=== PATIENT | female | born 1955 | race Caucasian/White ===

== ENCOUNTER 2022-04-13 05:07 | Observation (INO) ==
--- NOTE | 2022-03-19 16:10 | PAT Medication Instructions ---
Medication Instructions Date of Service March 19, 2022 Home Medications acetaminophen 500 mg tablet 1,000 mg PO Q6H PRN Pain ascorbic acid (vitamin C) 1,000 mg tablet (Vitamin C) 1 g PO Q2D cholecalciferol (vitamin D3) 25 mcg (1,000 unit) capsule (Vitamin D3) 25 mcg PO QPM cyanocobalamin (vitamin B-12) 1,000 mcg capsule 1,000 mcg PO QPM famotidine 20 mg tablet (Pepcid) 20 mg PO QAM multivitamin 1 tab PO QPM rosuvastatin 20 mg tablet 20 mg PO QAM DO NOT take the morning of surgery ascorbic acid (vitamin C) 1,000 mg tablet (Vitamin C) 1 g PO Q2D Take morning of surgery With a small sip of water, OTHERWISE NOTHING TO EAT OR DRINK AFTER MIDNIGHT: acetaminophen 500 mg tablet 1,000 mg PO Q6H PRN Pain (if needed) famotidine 20 mg tablet (Pepcid) 20 mg PO QAM rosuvastatin 20 mg tablet 20 mg PO QAM Take evening before surgery acetaminophen 500 mg tablet 1,000 mg PO Q6H PRN Pain (if needed) cholecalciferol (vitamin D3) 25 mcg (1,000 unit) capsule (Vitamin D3) 25 mcg PO QPM cyanocobalamin (vitamin B-12) 1,000 mcg capsule 1,000 mcg PO QPM multivitamin 1 tab PO QPM Other Notes If you have any questions please call us at [phone] or [phone] or [phone] or [phone]
--- NOTE | 2022-03-22 10:36 | Anesthesiology Consultation ---
Date of Service March 22, 2022 Assessment & Plan (1) Encounter for pre-operative examination: - Outpatient joint pathway: Per surgeon and patient, plan for outpatient joint program. Upon review of chart- patient is an acceptable candidate for Same Day Joint Program from anesthesia perspective pending perioperative course. Pending patient is motivated, has good support and surgeon's office completes Same Day Joint Program preop requirements- patient may proceed with outpatient TKA. Chart Review Chart Review: Acceptable Risk for Surgery and Patient seen in Pre Admission Testing Teaching & Discussion Pre-Anesthesia Teaching/Discussion Notes: Instructed NPO after midnight before surgery, except medications with 15 cc of water. Medication instructions provided according to the PAT guidelines. History Surgery Operation Date: 04/13/22 10:30 Proposed Procedures p Right Total Knee Arthroplasty - Blake Graham MD Height/Weight Height: 5 ft 5 in Weight: 83.3 kg Allergies Allergy/AdvReac Type Severity Reaction Status Date / Time No Known Allergies Allergy Verified 03/14/22 14:32 Medications Home Medications Medication Instructions Recorded Confirmed Last Taken acetaminophen 500 mg tablet 1,000 mg PO Q6H PRN Pain 03/14/22 03/14/22 Unknown ascorbic acid (vitamin C) 1,000 mg 1 g PO Q2D 03/14/22 03/14/22 Unknown tablet (Vitamin C) cholecalciferol (vitamin D3) 25 25 mcg PO QPM 03/14/22 03/14/22 Unknown mcg (1,000 unit) capsule (Vitamin D3) cyanocobalamin (vitamin B-12) 1,000 mcg PO QPM 03/14/22 03/14/22 Unknown 1,000 mcg capsule famotidine 20 mg tablet (Pepcid) 20 mg PO QAM 03/14/22 03/14/22 Unknown multivitamin 1 tab PO QPM 03/14/22 03/14/22 Unknown rosuvastatin 20 mg tablet 20 mg PO QAM 03/14/22 03/14/22 Unknown Wheeled Walker #1 ea 03/22/22 03/22/22 Unknown Past Medical History Medical History (Updated 03/22/22 @ 10:33 by Brenna Murillo PA-C) GERD (gastroesophageal reflux disease) controlled, stable per pt with diet control History of COVID-19 DX'D 03/2021 [facility] [place]-PNEUMONIA, NAUSEA,FEVER,FATIGUE-REOVERED AT HOME-RESOLVED Hyperlipidemia Patient denies h/o stroke, seizures, heart attack, heart failure, DM, HTN, blood clots or blood transfusions. Exercise / Class Metabolic Activity II 4-5 Yardwork/Stairs/Walk up hill (denies CP or SOB walking up hills, less than 8 steps in home) Past Family History Family History Mother Family history of diabetes mellitus Past Surgical History Surgical History H/O arthroscopy of left knee H/O bladder repair surgery History of cholecystectomy History of esophagogastroduodenoscopy (EGD) X 2 Past Anesthesia History No Hx of Anesthesia Complications and No Family Hx of Anesthesia Complications History of PONV No Hx of PONV and No Hx of Motion Sickness Social History Smoking Status: Never smoker Do You Dip or Chew Tobacco: No Hx Alcohol Use: Yes Alcohol type: beer alcohol intake frequency: holidays/special occasions only Hx Substance Use: No Review of Systems Patient denies chest pain, shortness of breath, dyspnea on exertion, snoring, wi tnessed apneas, fever, chills, cough, wheezing, or palpitations. Physical Exam Vital Signs Vitals BP 109/71 P 61 TEMP 98.1 SP02 98% on RA RESP 18 Physical Full cervical extension range of motion without pain TMD 3.5 finger breadths Mallampati Score 2 Dentition: intact, several missing, chipped and loose teeth; upper bilat side implants; denies caps/crowns Lungs: normal respiratory effort. Clear throughout to auscultation, no adventitious breath sounds Cardiac: regular rate and rhythm, no murmurs noted Carotid arteries: negative bruit bilat Lab Results Anesthesia Preop Results Results Anesthesia Widget: WBC 5.19 K/ul (4.8-10.8) 03/22/22 Hgb 12.7 g/dl (12.0-16.0) 03/22/22 Hct 38.4 % (34.1-44.9) 03/22/22 Plt 211 K/uL (130-400) 03/22/22 Na 140 mmol/L (136-145) 03/22/22 K 4.6 mmol/L (3.5-5.1) 03/22/22 Cl 106 mmol/L (98-107) 03/22/22 CO2 28 mmol/L (21-32) 03/22/22 BUN 18 mg/dl (6-23) 03/22/22 Creat 0.92 mg/dl (0.6-1.2) 03/22/22 Glucose Level 92 mg/dl (70-99(Fasting)) 03/22/22 PT 10.6 Seconds (9.0-12.0) 03/22/22 PTT 25.7 Seconds (21.0-31.0) 03/22/22 INR 1.0 (0.9-1.1) 03/22/22 Blood Type A Positive 03/22/22 Antibody Screen NEGATIVE 03/22/22 Testing Laboratory Results A1c 6.1% 02/27/22 Electrocardiogram Date: 03/22/22 Sinus bradycardia, rate 58 bpm Chest X-Ray Date: 03/22/22 The cardiomediastinal and hilar silhouettes are within normal limits. No pneumothorax, pleural effusion, airspace consolidation or overt pulmonary edema. Spondylitic spurring of the spine. Healed chronic bilateral rib fractures. Cholecystectomy. IMPRESSION: No acute process. COVID-19 Risk Screen Screening Information COVID-19 Screen Date: 03/22/22 Exposure 21 Days Family/Household +COVID Last 21 Days: No Exposure 10 Days Any COVID Exposure Last 10 Days: No Symptoms Last 10 Days Experienced COVID Sx Last 10 Days: No + COVID 0-90 Days COVID + in Last 0-90 Days: No
[2022-04-13] MEDS ORDERED: LR 500ML BOLUS, THEN 15ML/HR IV SCH (06:00)
[2022-04-13] MEDS ORDERED: Scopolamine 1 MG TDSY TD SCH (06:00)
[2022-04-13] MEDS ORDERED: FAMOTIDINE 20 MG TAB PO SCH (06:00)
[2022-04-13] MEDS ORDERED: LR 60ML/HR IV SCH (06:00)
[2022-04-13] MEDS ORDERED: ACETAMINOPHEN 500 MG TAB PO SCH (06:00)
[2022-04-13] MEDS ORDERED: CeleBREX 200 MG CAP PO SCH (06:00)
[2022-04-13] MEDS ORDERED: ceFAZolin 2000MG 2,000 MG/15 ML SYR IV SCH (06:00)
[2022-04-13] MEDS ORDERED: METOCLOPRAMIDE HCL 10 MG TABLET PO SCH (06:00)
[2022-04-13] MEDS ORDERED: TRANEXAMIC ACID 1,000 MG **IV Intra-op IV SCH (06:00)
[2022-04-13] MEDS ORDERED: BUPIVACAINE LIPOSOME/PF 266 MG, BUPIVACAINE/EPINEPHRINE 50 ML, SODIUM CHLORIDE 0.9% 30 ... INFIL SCH (06:00)
[2022-04-13] MEDS ORDERED: EPINEPHrine INJ 1 MG/ML AMP ONE (06:28)
[2022-04-13] MEDS ORDERED: ROPIVACAINE 0.5% 5 MG/ML 30 ML VIAL ONE (06:28)
[2022-04-13] MEDS ORDERED: MEPIVACAINE HCL 1.5% 30 ML VIAL ONE (06:28)
[2022-04-13] MEDS ORDERED: MIDAZOLAM HCL 1 MG/ML 2ML VIAL ONE (06:43)
--- NOTE | 2022-04-13 06:53 | History & Physical Bridge Note ---
Date of Service April 13, 2022 History & Physical Bridge Note I have examined the patient, reviewed the History & Physical and in the interval since the performance of the History & Physical I have noted the following changes of clinical significance: no changes noted
[2022-04-13] MEDS ORDERED: SODIUM CHLORIDE 0.9% PF 50 ML VIAL ONE (06:58)
[2022-04-13] MEDS ORDERED: BUPIVACAINE/EPINEPHRINE 0.25% 1:200,000 30 ML VIAL ONE (06:58)
[2022-04-13] MEDS ORDERED: BUPIVACAINE LIPOSOME 1.3% 266 MG/20 ML VIAL ONE (06:58)
[2022-04-13] MEDS ORDERED: PROPOFOL IV EMULSION 10 MG/ML 20 ML VIAL IV ONE (07:24)
[2022-04-13] MEDS ORDERED: KETOROLAC 30 MG/ML VIAL ONE (07:24)
[2022-04-13] MEDS ORDERED: LIDOCAINE 2% MPF LOCAL 5 ML VIAL INFIL ONE (07:24)
[2022-04-13] MEDS ORDERED: KETAMINE 50 MG/5 ML SYRINGE ONE (07:28)
[2022-04-13] MEDS ORDERED: GLYCOPYRROLATE 0.2 MG/ML VIAL ONE (07:28)
[2022-04-13] MEDS ORDERED: ONDANSETRON INJ 2 MG/ML 2 ML VIAL ONE (07:46)
[2022-04-13] MEDS ORDERED: ATROPINE SULFATE 0.1 MG/ML 10ML SYR IV PRN (08:22)
[2022-04-13] MEDS ORDERED: ePHEDrine sulfate 50 MG/ML AMP IV PRN (08:22)
--- NOTE | 2022-04-13 08:58 | Operative Report ---
PG Post Operative Report Pre & Post Diagnosis Operation Date: 04/13/22 07:00 Pre-Op Diagnosis: Right Knee Osteoarthritis Post-Op Diagnosis: Right Knee Osteoarthritis I identified the patient and participated in the time-out.: Yes Procedure Operation Date: 04/13/22 07:00 Actual Procedures p Right Total Knee Arthroplasty(Right) - Blake Graham MD Surgeon Blake Graham MD Construction Scheduler Jeovanny Us PA-C Estimated Blood Loss 50 Findings Consistent with Post-Op Diagnosis Operative findings real advanced right knee DJD. She had extensive grade 4 [id number] disease of the medial and patellofemoral compartments. She had a varus deformity to her knee with a flexion contracture. She had multiple loose bodies. Moderate-sized joint effusion. Specimens Right knee sent for pathology Drains None Anesthesia Type Spinal MAC Complications none Disposition Accompanied Patient To Recovery: No Indications Patient is a 66-year-old female has had a several year history of gradual progressive increased right knee pain discomfort and stiffness. She failed conservative measures. She elected proceed with total knee arthroplasty. Description of Procedure Operative implants consisted of: 1. Biomet Vanguard size 62.5 right posterior stabilized femoral component. 2. Biomet size 71 tibial tray. 3. 10 mm posterior stabilized polyethylene insert. 4. 31 x 8 all Paller patella. The patient was taken the operating, identified, and placed on the operating table supine position protectors were properly padded. IV antibiotics tried by anesthesia team. A spinal anesthetic and abductor canal block had been provided in the holding area. A right thigh tourniquet was then placed. The right lower extremities then prepped and draped in usual sterile fashion. The right leg was elevated exsanguinated with use of an Esmarch interspaced at 300 mmHg. An anterior approach of the right knee was then performed to longitudinal incision centered over the patella. Sharp dissection was carried through subcutaneous this down the extensor mechanism. A medial parapatellar arthrotomy incision was made. Some subperiosteal dissection was carried out medially. The fat pad was resected from Neath patella tendon. Lateral patellofemoral ligament was released. Patella was subluxated laterally and the knee was flexed. Multiple loose bodies were removed from the knee. The osteophytes taken off distal femur. The ACL and PCL were then released from distal femur the tibia subluxated anteriorly. External tibial alignment jig was then placed in the interface the tibia and adjusted 14 mm medially. Proximal tibial cut was made remove about 2 mm of bone from the medial side. The tibia was then sized to a size 71. We did remove some osteophytes medially and posterior medially. Attention then drawn the femur. The distal femur stem with a sharp drill. Intramedullary canal was suction. A right 5 degree valgus cutting guide was placed. Distal femoral cutting block was pinned in place. Distal femoral cut was made to take an additional 3 mm bone off distal femur. The femur was then sized to a size 62.5. We did downsize about a half a size. The AP cutting block was pinned parallel to the epicondylar axis which was 4 degrees of external rotation. The anterior cut, anterior chamfer, posterior cut, posterior chamfer cuts were made. The box cutting guide was placed in the just slight lateral box cut was made. The knee was flexed. The remnants of the medial and lateral menisci were excised. The osteophyte taken off the posterior aspect of femur. A trial femoral component was placed. The tibial tray was pinned in maximum external rotation and the drill and stem punch used to create defect in proximal tibia for the tibial tray. Knee was then trialed and the 10 mm insert fit most appropriately. Attention drawn to the patella. The patella was cleaned of all soft tissue. Patella thickness measured by 18 mm in thickness and was cut down to 13. Was sized to a size 31 patella. The lug holes were drilled for the 31 patella. Lateral osteophytes removed. Patella button was placed. Knee was taken through range of motion patella tracked nicely with no thumbs test. Attention drawn to place the permanent components. All trial components were removed. Bone plug was placed in the distal femur limit blood loss. Double batch Palacos G cement was mixed. Biomet Vanguard size 62.5 right posterior stabilized femoral component, size 71 tibial tray, 10 mm posterior stabilized polyethylene insert, and a 31 x 8 all Paller patella then cemented in place. Knee was brought out into full extension until cement hardened. Final cement check was then performed. Pericapsular tissues were injected with total 100 cc of combination of 20 cc of Exparel, 30 cc normal saline, 50 cc of quarter percent Marcaine with epinephrine. Patient did receive 1 g tranexamic acid. The tourniquet was then let down for final turn time 56 minutes. Hemostasis assured use electrocautery. Extensor mechanism then closed with combination 1 PDS suture #1 Vicryl suture in [id number] fashion. Ext ensor mechanism checked found to be intact with subcutaneous tissue then closed with 2 Dexon suture in a buried interrupted fashion skin was closed skin ramon. Legs then cleaned and dried a sterile dressing was Xeroform, 4 x 4's, sterile cast padding, Armani bandage were applied. Patient then transferred to the recovery room in stable condition. Patient tolerated procedure well and there were no complications. Jeovanny Us, my physician secretary administrative assistant, was present for the entire procedure. His assistance was essential and required for appropriate patient positioning, prepping and draping, surgical exposure, performing the technical details of the operation, placement the implants, closure of the wound, and placement of the sterile bandage. I attest to the content of the Intraoperative Record and any orders documented therein. Any exceptions are noted below.
--- NOTE | 2022-04-13 09:08 | XRay Report ---
RIGHT KNEE 2 VIEWS History: Right total knee arthroplasty. Degenerative arthritis. Postop. FINDINGS: The patient is status post a right total knee arthroplasty. The hardware is intact. No frac ture or dislocation. Skin ramon are in place. IMPRESSION: Right total knee arthroplasty. No evidence for hardware complication. ACT 112: Negative or not required by law. Electronically signed by: Jamaal Green M.D. 04/13/2022 9:07 AM
--- NOTE | 2022-04-13 09:25 | Anesthesiology Progress Note ---
Date of Service April 13, 2022 Anesthesia Post Procedure Vital Signs Vital Signs: Temp Pulse Pulse Resp BP Pulse Ox O2 Del Method 04/13/22 09:15 68 19 115/75 97 Room Air 04/13/22 09:05 80 16 120/66 98 Room Air 04/13/22 08:55 36.5 C 79 14 104/63 100 Oxymask 04/13/22 05:37 36.7 C 64 18 129/78 97 Room Air O2 Flow Rate 04/13/22 09:15 04/13/22 09:05 04/13/22 08:55 4 04/13/22 05:37 Pain Intensity Right Knee: Pain Intensity: 8 Transfer of Care Handoff Completed per policy Notes Mental Status: alert / awake / arousable Patient Amnestic to Procedure: Yes Nausea / Vomiting: adequately controlled Pain: adequately controlled Airway Patency, RR, SpO2: stable & adequate BP & HR: stable & adequate Hydration State: stable & adequate Neuraxial Anesthesia: was administered and sensory block is resolving Anesthetic Complications: no major complications apparent
[2022-04-13] MEDS: oxyCODONE/ACETAMINOPHEN 5mg/325mg TAB PO PRN ×2 (10:06→17:09)
[2022-04-13] MEDS ORDERED: ceFAZolin 2000MG 2,000 MG/15 ML SYR IV ONE (15:00)
[2022-04-13] MEDS ORDERED: HYDROmorphone INJ 0.5 MG/0.5 ML SYR IV PRN (19:09)
[2022-04-13] MEDS ORDERED: NALOXONE HCL 0.4 MG/1 ML VIAL/CARP IV PRN (19:09)
[2022-04-13] MEDS ORDERED: ONDANSETRON INJ 2 MG/ML 2 ML VIAL IV PRN (19:09)
[2022-04-13] MEDS ORDERED: ALUMINUM/MAGNESIUM SUSP 30 ML UDC PO PRN (19:09)
[2022-04-13] MEDS ORDERED: bisacodyL 10 MG SUPP PR PRN (19:09)
[2022-04-13] MEDS ORDERED: MAGNESIUM HYDROXIDE SUSP 30 ML UDC PO PRN (19:09)
[2022-04-13] MEDS ORDERED: METOCLOPRAMIDE HCL INJ 5 MG/ML 2 ML VIAL IV PRN (19:09)
[2022-04-13] MEDS ORDERED: NON-FORMULARY MEDICATION (Ascorbic Acid (Vitamin C) [Vitamin C] 1,000 mg Tablet) PO SCH (19:09)
[2022-04-13] MEDS: KETOROLAC TROMETHAMINE 15 MG/ML VIAL IV SCH (20:40)
[2022-04-13] MEDS: DOCUSATE SODIUM 100 MG CAP PO SCH (20:41)
[2022-04-13] MEDS: ASPIRIN 81 MG ECTAB PO SCH (20:41)
[2022-04-13] MEDS ORDERED: NON-FORMULARY MEDICATION (Multivitamin Tablet) PO SCH (21:00)
[2022-04-13] MEDS ORDERED: CHOLECALCIFEROL 1,000 UNITS 25 MCG TAB PO SCH (21:00)
[2022-04-13] MEDS ORDERED: SENNA 8.6 MG TAB PO SCH (21:00)
[2022-04-13] MEDS ORDERED: CYANOCOBALAMIN (B-12) 500 MCG TABLET PO SCH (21:00)
[2022-04-13] MEDS: Scopolamine CHECK PATCH PLACEMENT SCH (21:06)
[2022-04-13] MEDS: SODIUM CHLORIDE 0.9% 1000ML 1,000 ML IV SCH (23:00)
[2022-04-13] MEDS ORDERED: TRANEXAMIC ACID / 0.7% NACL 1,000 MG/100 ML BAG IV SCH (23:45)
[2022-04-14] MEDS: ceFAZolin 2000MG 2,000 MG/15 ML SYR IV SCH ×2 (00:02→08:22)
[2022-04-14] MEDS: Scopolamine CHECK PATCH PLACEMENT SCH ×2 (01:12→08:09)
[2022-04-14] MEDS: KETOROLAC TROMETHAMINE 15 MG/ML VIAL IV SCH ×3 (01:47→14:21)
[2022-04-14] MEDS: ACETAMINOPHEN 500 MG TAB PO SCH ×3 (01:49→14:21)
[2022-04-14] MEDS: oxyCODONE HCL IR 5 MG TAB (IMMEDIATE RELEASE) PO PRN ×2 (03:17→12:06)
[2022-04-14 06:55] LABS: Hematocrit (blood only) 29.8 % (34.1-44.9); Hemoglobin 10.1 g/dl (12.0-16.0); Mean Corpuscular Hemoglobin 29.1 pg (25.0-34.0); Mean Corpuscular Hgb Conc 33.9 g/dL (32.0-36.0); Mean Corpuscular Volume 85.9 fL (80.0-100.0); Mean Platelet Volume 10.8 fL (9.4-12.3); Platelet Count 187 K/uL (130-400); RDW Coefficient of Variation 12.5 % (11.5-14.5); RDW Standard Deviation 38.6 fL (36.4-46.3); Red Blood Count 3.47 M/uL (3.93-5.22); White Blood Count 8.53 K/ul (4.8-10.8)
[2022-04-14 07:26] LABS: BUN Creatinine Ratio 17.7 (10-20); Calcium 8.5 mg/dl (8.5-10.1); Creatinine Clr Calc Pharmacy 61.8 ml/min; Est GFR (African American) 71.4 ml/min; Est GFR (Non-African American) 61.6 ml/min; Potassium 4.3 mmol/L (3.5-5.1)
[2022-04-14] MEDS: SODIUM CHLORIDE 0.9% 1000ML 1,000 ML IV SCH (07:34)
[2022-04-14] MEDS ORDERED: ASCORBIC ACID 500 MG TAB PO SCH (08:00)
[2022-04-14] MEDS ORDERED: dexAMETHasone 10 MG in SYRINGE 0 ML IV SCH (08:00)
[2022-04-14] MEDS: DOCUSATE SODIUM 100 MG CAP PO SCH (08:08)
[2022-04-14] MEDS: ASPIRIN 81 MG ECTAB PO SCH (08:08)
[2022-04-14] MEDS ORDERED: ROSUVASTATIN CALCIUM 20 MG TAB PO SCH (09:00)
[2022-04-14] MEDS ORDERED: MULTIVITAMIN TAB PO SCH (09:00)
[2022-04-14] MEDS ORDERED: DOCUSATE SODIUM/SENNA 50/8.6MG TAB PO SCH (09:00)
[2022-04-14] MEDS ORDERED: FAMOTIDINE 20 MG TAB PO SCH (09:00)
--- NOTE | 2022-04-14 09:02 | Progress Notes ---
SUBJECTIVE: A 66-year-old white female postoperative day 1 from a right knee replacement. She is do ing okay. Pain has been controlled. Her quad just has been weak. She is planning on doing this as an outpatient, but she failed therapy. No new complaints. No chest pain or shortness of breath. No t feeling dizzy or lightheaded. Her knee pain is actually controlled. OBJECTIVE: VITAL SIGNS: Temperature 36.9. Vital signs are stable. GENERAL: Shows a pleasant middle-aged female. She is sitting on bed, looks pretty comfortable this morning. LUNGS: Clear to auscultation. HEART: Regular rate and rhythm. ABDOMEN: Soft, nontender, nondistended. EXTREMITIES: Grossly neurovascularly intact except as follows. Examination of the right knee and leg reveals the leg to be well aligned. Dressing is clean, dry and intact. She can dorsiflex and plantarflex her foot appropriately. She cannot do a straight leg perez se yet. No pain with hip motion. LABORATORY DATA: Hemoglobin 10.1. Hematocrit 29.8. Electrolytes are stable. ASSESSMENT: A 66-year-old white female postoperative day 1 from a right knee replacement, doing okay . Her quad function has been slowly returning which is not unusual. Sometimes it takes 2 weeks befo re you can do a straight leg raise. She is neurologically intact. PLAN: 1. DVT prophylaxis includes thigh-high TEDs, SCDs, and aspirin twice a day. 2. PT/OT, weightbear as tolerated. Right total knee protocol. 3. Pain control, doing okay with current pain regimen. 4. Disposition: Plan to discharge to home with some home health if she does okay in therapy today. Job ID: [id number]
--- NOTE | 2022-04-20 07:48 | Discharge Summary ---
Date of Service April 20, 2022 Discharge Data Procedures Performed Operation Date: 04/13/22 07:00 Actual Procedures p Right Total Knee Arthroplasty(Right) - Blake Graham MD Hospital Course (1) Status post total right knee replacement: This is a 66 year old patient admitted on 04/13/22 and underwent total knee arthroplasty. She tolerated the procedure well and there were no complications. Transferred to the PACU post op and later to the orthopedic floor for further care. She was planning on doing this as an outpatient but failed PT. She was given ancef for antibiotic prophylaxis. She was also given JAMISON stockings, SCDs, and aspirin for DVT prophylaxis. Hemoglobin, hematocrit, and vital signs were monitored during her hospital stay and remained stable. Did not require any blood transfusions. There were no complications during her hospital stay. By post op day #1 the patient was tolerating a regular diet, pain was reasonably controlled with oral pain medicine, and she was participating in physical therapy. On post op day #1 the patient was discharged home and set up with home health care. She was given printed discharge instructions including prescriptions for extra strength tylenol, aspirin, senokot, zofran, and oxycodone. Continue physical therapy, weight bearing as tolerated. Continue JAMISON stockings. Follow up approximately 2 weeks post op or sooner if there are prob lems or concerns. Coding Level of Care Code None Diagnoses Status post total right knee replacement Z96.651
== END 2022-04-14 15:46 | disposition home health service (06) ==
LOC: 3E 05:07 → ASU 05:07

== ENCOUNTER 2023-09-26 09:14 | Observation (INO) ==
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
[~2023-09-26 09:14] MED LIST: ACETAMINOPHEN 1000 MG/100 ML IV IV ONE
[2023-09-26] MEDS ORDERED: ONDANSETRON INJ 2 MG/ML 2 ML VIAL ONE (10:10)
[2023-09-26] MEDS ORDERED: LIDOCAINE 2% 2 ML VIAL/AMP(20MG/ML) INFIL ONE (10:10)
[2023-09-26] MEDS ORDERED: ROCURONIUM BROMIDE 10 MG/ML 5 ML VIAL IV ONE (10:10)
[2023-09-26] MEDS ORDERED: PROPOFOL IV EMULSION 10 MG/ML 20 ML VIAL IV ONE (10:10)
[2023-09-26] MEDS ORDERED: MIDAZOLAM HCL 1 MG/ML 2ML VIAL ONE (10:10)
[2023-09-26] MEDS ORDERED: DEXAMETHASONE SOD INJ 4 MG/ML VIAL ONE (10:10)
[2023-09-26] MEDS ORDERED: fentaNYL citrate PF 100 MCG/2 ML VIAL ONE ×2 (10:11→12:42)
[2023-09-26] MEDS: LACTATED RINGER'S 1,000 ML IV SCH ×2 (10:20→17:35)
[2023-09-26] MEDS ORDERED: ONDANSETRON INJ 2 MG/ML 2 ML VIAL IV PRN ×2 (10:41→16:51)
[2023-09-26] MEDS ORDERED: ePHEDrine sulfate 50 MG/ML AMP IV PRN (10:41)
[2023-09-26] MEDS ORDERED: ATROPINE SULFATE 0.1 MG/ML 10ML SYR IV PRN (10:41)
--- NOTE | 2023-09-26 11:19 | History & Physical Bridge Note ---
Date of Service September 26, 2023 History & Physical Bridge Note I have examined the patient, reviewed the History & Physical and in the interval since the performance of the History & Physical I have noted the following changes of clinical significance: no changes noted
[2023-09-26] MEDS: ceFAZolin 2000MG 2,000 MG/15 ML SYR IV SCH ×2 (12:12→21:11)
[2023-09-26] MEDS ORDERED: SUGAMMADEX SODIUM 200 MG/2 ML VIAL IV ONE (15:27)
[2023-09-26] MEDS: BUPIVACAINE 0.5 % 5 MG/1 ML MPF 30ML VIAL ONE (15:29)
[2023-09-26] MEDS: ceFAZolin 330 MG/ML 1 GM VIAL ONE (15:30)
[2023-09-26] MEDS: PREMARIN VAG CRM 14 APPLN/30 GM TUBE ONE (15:31)
--- NOTE | 2023-09-26 15:57 | Operative Report ---
PG Post Operative Report Pre & Post Diagnosis Operation Date: 09/26/23 11:00 Pre-Op Diagnosis: Pelvic floor prolapse, cystocele, dysuria, incontinence Post-Op Diagnosis: Pelvic floor prolapse, cystocele, dysuria, incontinence I identified the patient and participated in the time-out.: Yes Procedure Operation Date: 09/26/23 11:00 Actual Procedures p Robotic Assisted Laparoscopic Sacrocolpopexy, extensive lysis of adhesions. - Carl Dias DO Surgeon Carl Dias, II, DO Board Machine Set Up Operator ALYX Swift Estimated Blood Loss 50 Findings Consistent with Post-Op Diagnosis Severe Pelvic organ prolapse with significant apical displacement and anterior wall prolapse. Grade 3-4 Cystocele prolapse significantly improved after procedure. Significant adhesions to the vaginal cuff and lateral wall. Specimens None Drains 18 Fr jean Anesthesia Type General Complications none Disposition Disposition: Recovery Room Indications Patient with Severe pelvic floor prolapse with significant apical prolapse and cystocele. Risk and benefits were discussed at length. Patient elected to undergo robotic assisted laparoscopic sacrocolpopexy with mesh insertion. Description of Procedure The patient was brought to the operative suite and placed under general endotracheal intubation anesthesia in the supine position. The patient was transferred to the dorsal lithotomy position. At this point, the patient prepped and draped in the usual sterile fashion and a timeout was completed. Preoperati ve antibiotics of Ancef 2 grams had been given. JAMISON's and SCD's were placed on the patient's lower extremities. A catheter was placed using sterile technique. An incision was made above the umbilicus and then a Veress needle was used to obtain access to the abdomen. Proper position was confirmed with the drop test and low initial insufflation pressure. The abdomen was insufflated with CO2 to a pressure of 12-15 mmHg. An 8 mm robotic port was placed in the incision and the robotic camera was inserted. The abdominal cavity was surveyed, demonstrating some sigmoid adhesions. There was no injury to abdominal viscera. The remaining robotic ports were placed under direct visualization, with 2 robotic ports on the left side and 1 robotic port on the right. A 8 mm biology laboratory assistant port was placed on the right side as well. ALYX Swift acted as the bedside biology laboratory assistant for the duration of the case. She assisted with gaining access, providing retraction and suction. Passing in sutures and applying clips as needed. Assisted with displacement/positioning of the vaginal vault. She assisted with closing as well. At this point, I transitioned to the robotic console. The small bowel was mobilized and the multiple adhesions of the sigmoid colon were freed with mainly blunt and sharp cold dissection. I sharply divided the sigmoid adhesions to gain some mobility of the colon. The vaginal cuff had multiple areas of adhesions to the sigmoid colon. Approx 25 additional minutes for extensive lysis of adhesions. An epiploic appendage of the sigmoid colon did have some bleeding/tearing from the lysis. A 3-0 silk suture was used to over- tie the area of tear in the appendage. This controlled bleeding. A seedchange vaginal manipulator was selected. Survey of the pelvis identified an appropriate location to be able to place the mesh and to tunnel the tail to the sacrum. I then turned my attention to the vaginal dissection. With the vagina directed posteriorly, the plane between the bladder and the vagina was established using sharp dissection with judicious cautery. There was significant adhesion of the anterior portion but a largely bloodless plane was achieved both anteriorly and posteriorly. The vagina was then directed anteriorly and the posterior dissection was completed. The posterior dissection was limited due to the numerous areas that had adhesed to the colon. The tissue was found to be thin and largely had been supported due to the adhesions. A 3-0 Vicryl suture was used to bolster the posterior edge of the peritoneum in this section and close the tissue in layers. The area between the aortic bifurcation was identified and the overlying peritoneum was incised. Dissection was carried down to expose the anterior aspect of the sacral promontory. There was good hemostasis. The peritoneum was then incised down to the vaginal tissue to allow coverage of the mesh tail. The mesh was then introduced after being soaked in cefazolin irrigation solution. I secured both the anterior and posterior aspects of the Y portion of the mesh at the vaginal dissection sites using interrupted 2-0 Goretex sutures in an interrupted fashion in four rows of three. The 30 degree up and down scope settings were utilized to secure the mesh. The posterior branch was attached in a similar fashion but this arm was shortened due to the limited prolapse/tissue posteriorly. No injuries or areas of concern. The mesh was well secured. The manipulator was removed and the tissue appeared to hold in good position without strain or issues. The severe prolapse was significantly improved. The manipulator was replaced. The tail of the mesh was then placed to sit at the anterior aspect of the sacral promontory. Tension was placed on the mesh and the prolapse was inspected from the vaginal introitus until there was a satisfactory reduction of the prolapse. The mesh was then secured in place using the 2-0 [place]iah sutures x 3 in an interrupted fashion. I then used 2-0 V-lock sutures to close the peritoneum over the mesh starting from the pelvic and presacral dissection areas. There was excellent hemostasis throughout the case without any major issues or concerns. The entire abdomen was inspected. No issues or concerns. The Mesh was completely covered. No major problems. On vaginal exam, there was drastic improvement of the pelvic floor prolapse. The robot was undocked. The ports were all assessed with the camera and no bleeding or issues. The ports were removed and the air released from the peritoneal cavity. The skin incisions were anesthetized with further local and closed with 4-0 Vicryl Monocryl sutures followed by a layer of Dermabond. Vaginal packing with premarin cream was then placed vaginally. The area was cleaned and glue placed on each incision. The patient was cleaned and bandaged, aroused from anesthesia, and transferred to the pacu in stable condition having tolerated the procedure well with no complications. I was present and participated in all aspects of the procedure. Clare WISDOM was critical in the portions as mentioned above. Will plan to observe postoperatively and monitor. Jean to be removed tomorrow as well as vaginal packing. I attest to the content of the Intraoperative Record and any orders documented therein. Any exceptions are noted below.
[2023-09-26] MEDS: fentaNYL citrate PF 100 MCG/2 ML VIAL IV PRN (15:58)
[2023-09-26 16:22] LABS: Basophils # (auto) 0.02 K/uL (0.00-0.20); Basophils % (auto) 0.2 %; Eosinophils # (auto) 0.03 K/uL (0.00-0.50); Eosinophils % (auto) 0.2 %; Hematocrit (blood only) 35.2 % (37.0-47.0); Hemoglobin 11.5 g/dl (12.0-16.0); Immature Granulocytes # (auto) 0.06 K/uL (0.01-0.20); Immature Granulocytes % (auto) 0.5 %; Lymphocytes # (auto) 1.15 K/uL (1.20-3.40); Lymphocytes % (auto) 9.4 %; Mean Corpuscular Hgb Conc 32.7 g/dL (32.0-36.0); Mean Corpuscular Volume 88.9 fL (80.0-100.0); Mean Platelet Volume 10.1 fL (9.4-12.4); Monocytes # (auto) 0.14 K/uL (0.11-0.59); Monocytes % (auto) 1.1 %; Neutrophils # (auto) 10.85 K/uL (1.40-6.50); Neutrophils % (auto) 88.6 %; Platelet Count 205 K/uL (130-400); RDW Coefficient of Variation 12.7 % (11.5-14.5); RDW Standard Deviation 41.6 fL (36.4-46.3); Red Blood Count 3.96 M/uL (4.20-5.40); White Blood Count 12.25 K/ul (4.8-10.8)
--- NOTE | 2023-09-26 16:26 | Anesthesiology Progress Note ---
Date of Service September 26, 2023 Anesthesia Post Procedure Vital Signs Vital Signs: Temp Pulse Pulse Resp BP BP Pulse Ox 09/26/23 16:20 60 16 118/75 94 09/26/23 16:10 59 L 16 119/81 94 09/26/23 16:00 63 16 134/75 98 09/26/23 15:50 59 L 16 138/78 100 09/26/23 15:44 36.5 C 71 15 137/77 97 09/26/23 10:00 36.7 C 56 L 18 118/69 97 O2 Del Method O2 Flow Rate 09/26/23 16:20 Oxymask 5 09/26/23 16:10 Oxymask 5 09/26/23 16:00 Oxymask 5 09/26/23 15:50 Oxymask 5 09/26/23 15:44 Oxymask 5 09/26/23 10:00 Room Air Transfer of Care Handoff Completed per policy Notes Mental Status: alert / awake / arousable Patient Amnestic to Procedure: Yes Nausea / Vomiting: adequately controlled Pain: adequately controlled Airway Patency, RR, SpO2: stable & adequate BP & HR: stable & adequate Hydration State: stable & adequate Anesthetic Complications: no major complications apparent and Pt Satisfied with anesthetic care
[2023-09-26 16:35] LABS: BUN Creatinine Ratio 16.7 (10-20); Calcium 8.9 mg/dl (8.6-10.3); Creatinine Clr Calc Pharmacy 59.8 ml/min; Est GFR (African American) 70.9 ml/min; Est GFR (Non-African American) 61.2 ml/min; Potassium 4.1 mmol/L (3.5-5.1)
--- NOTE | 2023-09-26 16:46 | Electrocardiogram Report ---
Test Reason : Blood Pressure : / mmHG Vent. Rate : 053 BPM Atrial Rate : 053 BPM P-R Int : 198 ms QRS Dur : 086 ms QT Int : 434 ms P-R-T Axes : 001 052 029 degrees QTc Int : 407 ms Sinus bradycardia Otherwise normal ECG When compared with ECG of 22-MAR-2022 10:50, No significant change was found Confirmed by Jun Rosas ([id number]) on 09/26/2023 4:45:51 PM Referred By: Carl Dias Confirmed By:Lucas Rosas
[2023-09-26] MEDS ORDERED: oxyCODONE HCL IR 5 MG TAB (IMMEDIATE RELEASE) PO PRN (16:51)
[2023-09-26] MEDS ORDERED: ACETAMINOPHEN 325 MG TAB PO PRN (16:51)
[2023-09-26] MEDS ORDERED: MoRPHine SULFATE 2 MG/ML CARP IV PRN (16:51)
[2023-09-26] MEDS: oxyCODONE HCL IR 5 MG TAB (IMMEDIATE RELEASE) PO PRN (17:35)
[2023-09-26] MEDS: DOCUSATE SODIUM 100 MG CAP PO SCH (21:11)
[2023-09-27 06:15] LABS: BUN Creatinine Ratio 14.7 (10-20); Basophils # (auto) 0.01 K/uL (0.00-0.20); Basophils % (auto) 0.1 %; Calcium 8.7 mg/dl (8.6-10.3); Creatinine Clr Calc Pharmacy 60.4 ml/min; Est GFR (African American) 71.8 ml/min; Hemoglobin 11.5 g/dl (12.0-16.0); Immature Granulocytes # (auto) 0.02 K/uL (0.01-0.20); Immature Granulocytes % (auto) 0.2 %; Lymphocytes % (auto) 14.3 %; Mean Corpuscular Hemoglobin 28.9 pg (25.0-34.0); Mean Corpuscular Hgb Conc 32.9 g/dL (32.0-36.0); Mean Corpuscular Volume 87.9 fL (80.0-100.0); Mean Platelet Volume 10.3 fL (9.4-12.4); Monocytes # (auto) 0.45 K/uL (0.11-0.59); Monocytes % (auto) 5.4 %; Neutrophils # (auto) 6.71 K/uL (1.40-6.50); Platelet Count 236 K/uL (130-400); Potassium 4.2 mmol/L (3.5-5.1); RDW Coefficient of Variation 12.6 % (11.5-14.5); RDW Standard Deviation 40.5 fL (36.4-46.3); Red Blood Count 3.98 M/uL (4.20-5.40); White Blood Count 8.39 K/ul (4.8-10.8)
[2023-09-27] MEDS: ROSUVASTATIN CALCIUM 20 MG TAB PO SCH (08:21)
--- NOTE | 2023-09-27 11:11 | Urology Progress Note ---
Date of Service September 27, 2023 Assessment & Plan (1) Pelvic floor dysfunction: (2) Cystocele: (3) Incontinence: Plan POD #1 s/p Robotic Assisted Laparoscopic Sacrocolpopexy, extensive lysis of adhesions with Dr. Dias. Recovering appropriately. Remains afebrile and hemodynamically stable. Labs today show WBC 8.39, hemoglobin 11.5, creatinine 0.95. Blair catheter removed this morning for void trial. Patient has voided x 2 since removal. Vaginal packing removed this AM with scant amount of drainage noted. Pt reports minimal pain. Incisions appropriate. Tolerating diet. Ambulated without issue. Plan- Pt is stable for discharge home today. Discharge instructions were reviewed, all questions were answered. Postoperative follow-up appointment in place. Admission and Anticipated Discharge Date Admission Date: September 26, 2023 Subjective Pt examined at bedside this AM. Awake, resting in bed on arrival. No acute distress. Feeling well overall. Vaginal packing removed this morning. Reports a small amount of bloody vaginal drainage. Blair catheter removed this morning. She has voided twice since catheter removal. Denies fever, chills, nausea, vomiting. Tolerating diet. Reports minimal pain, managing with p.o. medication. Ambulating without issue. Denies dizziness or lightheadedness. Eager to go home. Review of Systems Constitutional: as per Subjective / HPI Gastrointestinal: as per Subjective / HPI Genitourinary: as per Subjective / HPI Physical Exam Constitutional: well developed and well nourished; no acute distress Respiratory: normal respiratory effort; no respiratory distress and no labored breathing Gastrointestinal (Abdomen): Percussion/Palpation: abdomen soft; abdomen nontender Incisions appropriate. Dermabond intact. Musculoskeletal: Head/Neck/Chest: normocephalic Neurologic: moves all extremities and awake Psychiatric: A+Ox3, euthymic affect Results & Data Vital Signs (Past 12 Hours) Vital Signs Temp Pulse Pulse Resp BP Pulse Ox O2 Del Method 09/27/23 07:16 37.2 C 88 88 14 113/80 98 Room Air 09/27/23 05:05 37.0 C 65 14 118/67 95 Room Air 09/27/23 01:04 36.9 C 66 14 97/61 L 95 Room Air PG Care Time/CCT Total # of Minutes Spent Total Time Spent with Patient: Total time spent is greater than 50% in coordination of care (as documented) at patient's floor/unit and/or counseling patient: Coding Level of Care Code None Diagnoses Pelvic floor dysfunction M62.89 Cystocele Incontinence R32
--- NOTE | 2023-09-27 11:13 | Discharge Summary ---
Date of Service September 27, 2023 Admission HPI Per Admitting Provider 67-year-old female who presented for robot-assisted laparoscopic sacrocolpopexy Admission Exam Per Admitting Provider General: Alert in no acute distress. HEENT: Normocephalic Atraumatic. Inspection normal. Psychologic: Normal affect. Respiratory: Nonlabored. Cardiovascular: No tachycardia Skin: [place] and Dry. Principal Diagnosis Pelvic floor prolapse, cystocele, dysuria, incontinence Discharge Exam Constitutional well developed and well nourished; no acute distress Respiratory normal respiratory effort; no respiratory distress and no labored breathing Gastrointestinal (Abdomen) Percussion/Palpation: abdomen soft; abdomen nontender Incisions appropriate, Dermabond intact. Musculoskeletal Head/Neck/Chest: normocephalic Neurologic moves all extremities and awake Psychiatric A+Ox3, euthymic affect Discharge Data Allergies Allergy/AdvReac Type Severity Reaction Status Date / Time No Known Allergies Allergy Verified 09/26/23 09:53 Procedures Performed Operation Date: 09/26/23 11:00 Actual Procedures p Robotic Assisted Laparoscopic Sacrocolpopexy(Not Applicable) - Carl Dias, Hospital Course (1) Pelvic floor dysfunction: (2) Cystocele: (3) Incontinence: Plan POD #1 s/p Robotic Assisted Laparoscopic Sacrocolpopexy, extensive lysis of adhesions with Dr. Dias. Recovering appropriately. Remains afebrile and hemodynamically stable. Labs today show WBC 8.39, hemoglobin 11.5, creatinine 0.95. Blair catheter removed this morning for void trial. Patient has voided x 2 since removal. Vaginal packing removed this AM with scant amount of drainage noted. Pt reports minimal pain. Incisions appropriate. Tolerating diet. Ambulated without issue. Plan- Pt is stable for discharge home today. Discharge instructions were reviewed, all questions were answered. Postoperative follow-up appointment in place. Total Time Total Time Spent Total Time Spent (In Minutes): 15 Discharge Plan Discharge Items Patient Disposition: Home - Self-Care Reason For Visit: POSTOP Discharge Diagnosis: Postop Condition on Discharge: Good Activity: Per Instructions section Lifting: No more than 25 pounds Bathing Comment: OK to shower. No tub baths or soaks for 2 weeks. Sexual Activity: Wait until after follow-up appointment Exercise/Sports: Wait until after follow-up appointment Driving/Machine Use: Do not drive if taking prescription pain medication Non-emergency contact: Surgeon and Urologist Call non-emergency contact if: you have any medication questions, your pain is not controlled, your pain is worsening, you have a fever, your wound has increased redness, your wound has increased drainage and your wound pain has increased Follow-up/Referrals: Carl Dias DO [Physician] - 10/15/23 3:15 pm Cornelius Brennan DO [Primary Care Provider] - Diet: Regular Addtl Attending Provider Instructions: Please take all medications as prescribed and keep all follow-ups as scheduled. Please call our office at [phone] with any questions, concerns or need to reschedule appointments for any reason. We are happy to assist you. An antibiotic has been sent to your pharmacy. Please take as directed. Tips for your recovery at home: Vaginal bleeding is to be expected for the next 1-2 weeks. Okay to wear pads as needed. No douching or tampons. Drink plenty of fluids during the day (enough to keep your urine very light colored). This will help keep a healthy flow of urine. Do not lift >25 lbs until your followup Avoid constipation. Please use a stool softener (Colace) for the first two weeks after your procedure Be sure to finish the antibiotics as prescribed. When to call [facility] [place] [facility] at [phone]: Your urine contains heavy blood clots or you are unable to urinate You are constantly leaking urine Fever of 101F or higher, chills, nausea, or vomiting Your pain is not relieved with medication Pending Studies at Discharge: No Stand-Alone Forms: [facility], Pain - Opioid Pain Management, Smoking Cessation Medications and DC Order Prescriptions: New oxycodone 5 mg tablet 5 mg PO Q8H PRN (Reason: pain) Qty: 7 0RF cephalexin 500 mg capsule 500 mg PO BID 5 Days Qty: 10 0RF Continued (DME) Kevin Rowan [facility] See Rx Instructions .MEDSUPPLY Qty: 1 0RF Rx Instructions: As directed rosuvastatin 20 mg tablet 20 mg PO QAM multivitamin Tablet 1 tab PO QPM ascorbic acid (vitamin C) [Vitamin C] 1,000 mg Tablet 1 g PO Q2D cholecalciferol (vitamin D3) [Vitamin D3] 25 mcg (1,000 unit) Capsule 25 mcg PO Q2D cyanocobalamin (vitamin B-12) 1,000 mcg Capsule 1,000 mcg PO QPM acetaminophen 500 mg capsule 1,000 mg PO TID PRN (Reason: Pain) Rx Instructions: Take 3 times per day to lessen pain. post op. Discharge Orders: Discharge Order (Routine); Ordered 09/27/23 Ordered By: Clare [place]/Other Patient Handouts: DVT Post Op Prevention Admission Data Admit Date/Time: 09/26/23 15:51 Attending Provider: Carl Dias Admit Provider: Carl Dias Primary Care Provider: Cornelius Brennan Other Interventions: Discharge Summary Assessment (RN) Last Done: 09/27/23 11:25 Coding Level of Care Code 40066 IN/OBS DISCH 30 MIN/LESS Diagnoses Pelvic floor dysfunction M62.89 Cystocele Incontinence R32
== END 2023-09-27 11:58 | disposition home or self-care (01) | DRG 748 ==
LOC: ASU 09:14 → 3W 15:51 → INTOOBSV 15:51